=== PATIENT | male | born 1990 | race Caucasian/White ===

== ENCOUNTER 2016-09-09 10:06 | Emergency (ER) | payer MEDICAID, OTHER ==
[~2016-09-09] VITALS: Ht 182.9 cm; Wt 77.3 kg
[2016-09-09 10:08] VITALS: BP 158/97; PULSE 118; RESP 16; O2SAT 100
--- NOTE | 2016-09-09 10:18 | ED.REPORT ---
HPI-Overdose/Alcohol Toxicity Date of Service Sep 09, 2016 ED Provider: Jn Camacho DO Patient is a 26 year old male with a history of withdrawal seizures, smoking, and marijuana use presenting to the ED due to concern of alcohol withdrawal. The patient states that he had quit drinking successfully following a withdrawal seizure several months ago but began drinking again recently. He has been drinking approximately one half bottle per day for the last month but feels that "his body can't handle drinking now." His last drink was a shot at 21 :00 last night. The patient admits to feeling unwell and having tunnel vision yesterday, and suspects that this was due to anxiety. He denies feeling shaky. The pt has no history of assisted detox and is not interested in Crisis admission at this time. He requests thymine and clonidine as treatment. Nursing Notes Stated Complaint: SEIZURE Chief Complaint: Substance Abuse Nursing Notes Reviewed: Yes Allergies: Coded Allergies: No Known Allergies (Unverified , 09/09/16) Scheduled PRN Lorazepam (Ativan) 1 Mg Tablet 0.5-1 MG PO BID PRN PRN For Withdrawal Symptoms General Time Seen by Provider: 10:10 Chief Complaint Other (possible alcohol withdrawal) Hx Obtained From: Patient Arrived By: Walk-in Onset Occurred: Yesterday Recent Healthcare: Recent hospitalization Similar Sx Previous: Yes Past Medical History Past Medical History withdrawal seizures Past Surgical History none reported Smoking History Current Every Day Smoker Social History drink 1/2 a bottle of alcohol a day for the past month drank half a gallon over two days last weekend Alcohol Use: 3-5 per day Drug Use: THC Other Social History: Good social support, Lives with parents (grandfather) Ambulatory Status Independent Review of Systems Review of Systems Note: denies shakiness Respiratory: Denies: Non-productive cough, Shortness of breath Skin: Denies Rash Neurologic: Reports: Vision change ("tunnel vision"), Denies: Shaking Psychiatric: Reports: Anxiety Complete sys rev & neg: except as marked. Physical Exam Initial Vital Signs Vital Signs (First) Date Time Temp Pulse Resp B/P Pulse Ox O2 Delivery O2 Flow Rate FiO2 09/09/16 10:08 36.1 118 16 158/97 100 09/09/16 11:15 Room Air Initial VS: Reviewed General/Constitutional: Awake, Alert, No acute distress minimally tremulous Respiratory / Chest: Atraumatic, Breath sounds NL, Breath sounds = bilat, No respiratory distress Cardiovascular: Regular rhythm, Heart sounds NL Heart Rate / Rhythm: Positive: Tachycardia Abdomen: Atraumatic, Soft, Non-tender Neurologic: Oriented X3, Speech NL, No motor deficits, No sensory deficits Psychiatric: Affect NL, Mood NL Head / Eyes: Atraumatic, Normocephalic, PERRL, EOMI ENT: Atraumatic, Airway patent, Mucous membranes moist Neck: Atraumatic, Supple, Full range of motion Back: Atraumatic, Full range of motion Skin: Atraumatic, Color NL, No rash, Warm, Dry Upper Extremity / MS: Atraumatic, Full range of motion Lower Extremity / Pelvis / MS: Atraumatic, Full range of motion Re-Eval/Medical Decision Med Decision/Clinical Course Patient is in mild alcohol withdrawal, he declines crisis respite, he actually wants to go to work this week. His grandfather is at the bedside and agrees to help monitor and dispense Ativan if needed. Return and follow-up precautions given. Source of Hx: Old records Re-Evaluation/Progress : Time of Eval: 10:58 Patient Status: Condition improved Re-Evaluation/Progress Note: Discussed options for treatment and discharge. The patient will be discharged with PRN Ativan in the care of his grandfather. The patient understands and agrees with the plan. All questions were addressed. Counseled Regarding: Diagnosis, Need for follow-up, When/why to return to ED Discharge & Departure Impression: Primary Impression: Alcohol withdrawal Disposition: Home Discharge Condition All VS Reviewed: Yes Condition: Improved Patient Instructions: Abuse of Alcohol (ED) Additional Instructions: Take thiamine 100mg, folic acid 1mg, and a multivitamin daily. Use Ativan 1/2-1 mg up to twice daily as needed for mild withdrawal symptoms. Return to the ER if you develop signs of severe withdrawal such as seizure, lethargy, altered mental status or other concerns. Contact crisis respite as needed if you wish to have a more formal monitored detox Referrals: Crisis Respite Scribe Attestation Portions of this note were transcribed by Leanne Morales and Mercedes Dutton. I, Dr. Camacho personally performed the history, physical exam and medical decision-making; I reviewed and confirmed the accuracy of the information in the transcribed note. Signed by: Leanne Morales and Benito Stoll, and [phone]. copies to: Jn Pardo DO Sep 09, 2016 10:18 Polly Morales Sep 09, 2016 10:31 MERCEDES DUTTON Sep 09, 2016 11:30
[2016-09-09] MEDS ORDERED: LORazepam 2 mg Tablet PO ONE (10:30)
[2016-09-09] MEDS ORDERED: LORA-303 PO (11:08)
[2016-09-09 11:15] VITALS: BP 125/87; PULSE 83; RESP 16; O2SAT 100
== END 2016-09-09 11:15 | disposition home or self-care (01) ==
LOC: SED 10:06
DX: F10.239 Alcohol dependence with withdrawal, unspecified (principal); F17.200 Nicotine dependence, unspecified, uncomplicated

== ENCOUNTER 2016-11-05 09:10 | Emergency (ER) | payer OTHER ==
[~2016-11-05] VITALS: Ht 180.3 cm; Wt 79.5 kg
[~2016-11-05 09:10] MED LIST: LORA-303 PO
[2016-11-05 09:16] VITALS: BP 132/83; PULSE 78; RESP 12; O2SAT 96
--- NOTE | 2016-11-05 09:25 | ED.REPORT ---
HPI-General Illness Date of Service November 05, 2016 ED Provider: Jn Camacho DO The patient is a 26 year old male with history of alcohol abuse and alcohol withdrawal seizures, who presents to the emergency department requesting help with alcohol detox. His last drink was at 0600 this morning. He started drinking a few weeks ago and it has progressively gotten worse since onset. At this time he complains of feeling generally sore. He denies vomiting or tremors. He smokes tobacco and marijuana. He denies any other illicit drug use. Nursing Notes Stated Complaint: ALCOHOL WITHDRAWAL Chief Complaint: Substance Abuse Nursing Notes Reviewed: Yes Allergies: Coded Allergies: No Known Allergies (Unverified , 09/09/16) Scheduled PRN Lorazepam (Ativan) 1 Mg Tablet 0.5-1 MG PO BID PRN PRN For Withdrawal Symptoms General Time Seen by MD: 09:21 Chief Complaint Medical clearance Hx Obtained From: Patient, Other family... Arrived By: Walk-in Sudden in Onset?: No Onset Occurred: More than a week ago... Symptom Duration: Since onset Quality: Painful (soreness) Severity: Current: Mild Severity: Maximum: Mild Recent Healthcare: No recent doctor visit, No recent hospitalization Similar Sx Previous: Yes Past Medical History Past Medical History withdrawal seizures Past Surgical History none reported Family History Noncontributory Smoking History Current Every Day Smoker Social History Alcohol Use: >5 per day Drug Use: THC Other Social History: Good social support, Lives with parents, Local resident Ambulatory Status Independent Review of Systems Full Review of Systems GI: Denies: Vomiting Musculoskeletal: Reports: Myalgia Neurologic: Denies: Shaking Complete sys rev & neg: except as marked. Physical Exam Vital Signs Vital Signs Date Time Temp Pulse Resp B/P Pulse Ox O2 Delivery O2 Flow Rate FiO2 11/05/16 10:41 36.2 78 12 132/83 96 Room Air 11/05/16 09:16 36.2 78 12 132/83 96 Room Air Initial VS: Reviewed Head / Eyes: Atraumatic, Normocephalic, PERRL ENT: Mucous membranes moist, Conjunctiva normal, No scleral icterus Neck: Supple, Non-tender, Full range of motion Respiratory: Breath sounds normal, Clear to auscultation, No respiratory distress Cardiovascular: Regular rate & rhythm, Heart sounds normal, Intact distal pulses Abdomen / GI: Soft, Non-tender, No guarding, No rebound, No distention Lymphatic: No lymphadenopathy Extremities: Vascular intact, Neuro intact, No swelling, No tenderness Skin: Warm, Dry, No cyanosis Neurologic: Alert, Oriented, Nonfocal Psychiatric: Mood/affect normal, Behavior normal, Normal thought content General/Constitutional: Awake, Alert, Cooperative Interpretation & Diagnostics Interpretation & Diagnostics: Breathalyzer: 0.195 Urine drug screen: positive for marijuana Re-Eval/Medical Decision Source of Hx: Old records Time of Eval: 09:29 Re-Evaluation/Progress Note: Discussed plan to call crisis respite. Time of Eval: 10:38 Re-Evaluation/Progress Note: Discussed plan for discharge. The patient agrees to call crisis respite to see when a bed is available. All questions were addressed. Consultation #1: Consulted With: stock house worker Call Returned at: 09:29 Note: Will contact crisis respite. Consultation #2: Call Returned at: 09:52 Note: Spoke to crisis resp[facility]. They don't think there is a bed today but will have the patient get cleared anyway. Counseled Regarding: Diagnosis, Lab results, Need for follow-up, When/why to return to ED Discharge & Departure Primary Impression: Alcohol abuse Disposition: Home Discharge Condition All VS Reviewed: Yes Condition: Stable Additional Instructions: Thank you for entrusting us with your care today. Currently are no beds at crisis respite. Continue to call crisis respite and once there is a bed available return to the ER for medical clearance. Return to the emergency department for any new or concerning symptoms. Referrals: [facility] Crisis Respite Scribe Attestation Portions of this note were transcribed by Martina Chavez. I, Dr. Camacho personally performed the history, physical exam and medical decision-making; I reviewed and confirmed the accuracy of the information in the transcribed note. Signed by: Benito Dexter, 11/05/2016 at 1045. Jn Camacho DO November 05, 2016 09:25 Martina Chavez November 05, 2016 09:30
[2016-11-05 10:41] VITALS: BP 132/83; PULSE 78; RESP 12; O2SAT 96
== END 2016-11-05 10:41 | disposition home or self-care (01) ==
LOC: SED 09:10
DX: F10.10 Alcohol abuse, uncomplicated (principal); F17.200 Nicotine dependence, unspecified, uncomplicated; F12.10 Cannabis abuse, uncomplicated

== ENCOUNTER 2016-11-05 18:43 | Emergency (ER) | payer OTHER ==
[~2016-11-05] VITALS: Ht 180.3 cm; Wt 79.5 kg
[2016-11-05] MEDS ORDERED: _LORazepam 2 MG Tablet PO SCH (19:10)
--- NOTE | 2016-11-05 19:16 | ED.REPORT ---
[facility]-Medical Clearance Date of Service November 05, 2016 ED Provider: Jorge Snyder PA-C Obey is a 26-year-old male with a history of alcohol abuse presented for medical clearance to crisis rehabilitation. Patient was seen earlier in the day and medically cleared by Dr. Liz. There is no bed available at time, but now he has a bed reserved at 20:00. He returns at the request of crisis rehabilitation for reassessment including vitals, urine tox dip and breathalyzer. He admits some nausea now but denies any new symptoms including headache, chest pain, difficulty breathing, shortness of breath, abdominal pain. Admits history of alcohol seizures, tobacco use, marijuana use. Nursing Notes Stated Complaint: FOLLOW UP FOR CRISIS CENTER Chief Complaint: Psychiatric Complaint Nursing Notes Reviewed: Yes Allergies: Coded Allergies: No Known Allergies (Unverified , 09/09/16) Scheduled PRN Lorazepam (Ativan) 1 Mg Tablet 0.5-1 MG PO BID PRN PRN For Withdrawal Symptoms General Time Seen by Provider: 19:07 Chief Complaint : Other (clearance for crisis rehabilitation.) Past Medical History Past Medical History withdrawal seizures Past Surgical History none reported Family History Noncontributory Smoking History Current Every Day Smoker Social History Alcohol Use: >5 per day Drug Use: THC Other Social History: Good social support, Lives with parents, Local resident Ambulatory Status Independent Review of Systems General: Denies fever, chills, malaise. HEENT: Denies congestion, headache, sore throat. Respiratory: Denies dyspnea, cough, shortness of breath, wheezing. Cardiovascular: Denies chest pain, palpitations. Gastrointestinal: Denies vomiting, diarrhea, abdominal pain. Genitourinary: Denies frequency, urgency, dysuria, hematuria. Otherwise as noted in HPI. Physical Exam General: Well appearing, well developed, well nourished, no acute distress. Head: Atraumatic, normocephalic. Eyes: No scleral icterus or injection. No discharge. Vision grossly intact. ENT: Voice clear, hearing grossly intact. Respiratory: Regular rate and rhythm. Breath sounds present, clear to auscultation and equal bilaterally. No respiratory distress. No increased work of breathing, speaks in complete sentences. Cardiovascular: Regular rate and rhythm, without murmur, gallop or rub. No pedal edema. Gastrointestinal: Abdomen flat and non-tender without guarding or rebound. Bowel sounds normoactive. Skin: Warm and dry. Neurological: Grossly nonfocal. Psychological: Alert and oriented. Speech appropriate, linear and logical. Behavior appropriate. Initial Vital Signs Vital Signs (First) Date Time Temp Pulse Resp B/P Pulse Ox O2 Delivery O2 Flow Rate FiO2 11/05/16 18:48 37.3 11/05/16 19:43 112 18 155/86 96 Room Air Interpretation & Diagnostics Lab Results Interpretation Test 11/05/16 19:30 Hold Urine Received (Received) Re-Eval/Medical Decision Med Decision/Clinical Course 26-year-old male seeks seeking medical clearance for crisis rehabilitation. Evaluated earlier in the day by Dr. Liz and medically cleared but no bed was available. A bed is available now at 20:00. Admits some nausea and general achiness but denies new symptoms. Physical examination is benign. Vitals are within acceptable limits, mildly tachycardic at 112, mildly elevated blood pressure 155/86.. Breathalyzer equal to Breathalyzer 104 and U tox remained positive for marijuana. Patient is medically cleared for alcohol detox. Dispensed a Ativan taper to be administered by crisis rehabilitation staff. Provide emergent return precautions. Patient verbalizes understanding of and consent to the plan. Discharge & Departure Impression: Primary Impression: Alcohol abuse Additional Impression: Alcohol withdrawal Complication of substance-induced condition: uncomplicated Qualified Code: F10.230 - Alcohol dependence with withdrawal, uncomplicated Disposition: Home Discharge Condition All VS Reviewed: Yes Condition: Stable Patient Instructions: Alcohol Dependence (ED) Additional Instructions: Medical clearance to alcohol detox in the emergency department both history, physical examination, urinalysis, breathalyzer, all of which revealed no medical instability. You are medically cleared to enter into detox. You will be sent with an Ativan taper to be administered by the staff at the crisis [facility]. Return to emergency department for new or worsening symptoms including seizures. This is worthwhile. Good luck. Referrals: [facility] (PCP) [facility] Provider for [facility]: Zion Martínez MD, Seth PA-C November 05, 2016 19:16
[2016-11-05 19:43] VITALS: BP 155/86; PULSE 112; RESP 18; O2SAT 96
== END 2016-11-05 19:47 | disposition home or self-care (01) ==
LOC: SED 18:43
DX: F10.230 Alcohol dependence with withdrawal, uncomplicated (principal); R11.0 Nausea; F17.200 Nicotine dependence, unspecified, uncomplicated